=== PATIENT | female | born 1995 | race Caucasian/White ===

== ENCOUNTER 2022-03-01 08:34 | Inpatient (IN) | payer OTHER ==
[~2022-03-01] VITALS: Ht 162.6 cm; Wt 74.0 kg
[2022-03-01 08:41] VITALS: BP 115/71
[2022-03-01] MEDS ORDERED: ZOLOFT100 MG PO (08:42)
[2022-03-01] MEDS ORDERED: REMERON15 M2 PO (08:43)
[2022-03-01] MEDS ORDERED: ATIVAN0.5 MG PO (08:43)
[2022-03-01 08:59] LABS: BASO % 0.5 % (0.0-1.0); EOS # 0.1 10*3/uL (0.0-0.4); EOS % 1.6 % (1.0-4.0); HEMATOCRIT 37.5 % (37.0-47.0); LYMPH # 1.5 10*3/uL (1.3-4.4); LYMPH % 23.9 % (27.0-41.0); MEAN CELL VOLUME 86.4 fl (81.0-99.0); MEAN CORPUSCULAR HGB CONC 33.6 g/dl (33.0-37.0); MEAN PLATELET VOLUME 9.2 fl (9.6-12.3); MONO # 0.4 10*3/uL (0.1-1.0); MONO % 6.5 % (3.0-9.0); NEUT # 4.3 10*3/uL (2.3-7.9); NEUT % 67.3 % (47.0-73.0); PLATELET COUNT AUTOMATED 246 10*3/uL (130-400); RED BLOOD COUNT 4.34 10*6/uL (4.10-5.10); RED CELL DISTRI WIDTH 12.3 % (0-14.5); WHITE BLOOD COUNT 6.3 10*3/uL (4.8-10.8)
[2022-03-01 09:16] LABS: ALKALINE PHOSPHATASE 72 U/L (45-117); BUN 14 mg/dl (7-24); CHLORIDE 105 mmol/L (98-107); CREATININE 0.78 mg/dL (0.55-1.02); POTASSIUM 4.1 mmol/L (3.5-5.1); SGOT/AST 18 IU/L (3-35); SGPT/ALT 54 U/L (12-78); SODIUM 138 mmol/L (136-145); TOTAL PROTEIN 6.7 gm/dL (6.4-8.2)
[2022-03-01 09:24] LABS: THYROID STIM HORMONE (HS) 0.312 uIU/ml (0.358-4.75)
[2022-03-01 12:14] LABS: BILIRUBIN Negative (Negative); BLOOD Negative (Negative); CLARITY Clear (Clear); COLOR Yellow (Yellow); GLUCOSE Negative (Negative); KETONE Negative (Negative); LEUKO ESTERASE 1+ (Negative); NITRITE Negative (Negative); PH 7.5 (4.5-8.0); SPECIFIC GRAVITY 1.015 (1.001-1.030); UROBILINOGEN 0.2 E.U./dl (0.0-1.0)
[2022-03-01 12:23] LABS: URINE AMPHETAMINES < 1000 (1000ng/ml); URINE BARBITURATES < 200 (200ng/ml); URINE BENZODIAZEPINES < 200 (200ng/ml); URINE CANNABINOIDS (THC) < 50 (50ng/ml); URINE COCAINE < 300 (300ng/ml); URINE METHADONE < 300 (300ng/ml); URINE OPIATES < 300 (300ng/ml)
[2022-03-01 12:24] LABS: BACTERIA 1+; MUCOUS 1+; RBC 0-2 rbc/hpf (0-2)
[2022-03-01 12:27] LABS: URINE PHENCYCLIDINE < 25 (25ng/ml)
[2022-03-01 20:15] VITALS: BP 124/68
[2022-03-02] VITALS: BP 107/59
[2022-03-02 08:00] VITALS: BP 111/56
[2022-03-02 12:00] VITALS: BP 102/58
[2022-03-02 16:00] VITALS: BP 131/74
[2022-03-02 20:00] VITALS: BP 122/71
[2022-03-03] VITALS: BP 115/59
[2022-03-03 08:00] VITALS: BP 125/86
== END 2022-03-03 12:50 | disposition left against medical advice (07) | DRG 770 ==
LOC: ED 08:34 → EDHOLD 10:04 → 5E 10:04 → EDHOLD 11:46 → 5E 18:49
PROVIDERS: Internal Medicine; ADMIT Family Medicine; ATTEND Family Medicine
DX: F11.23 Opioid dependence with withdrawal (principal); F13.10 Sedative, hypnotic or anxiolytic abuse, uncomplicated; G25.81 Restless legs syndrome; R73.9 Hyperglycemia, unspecified; F41.9 Anxiety disorder, unspecified; F32.A Depression, unspecified